=== PATIENT | female | born 1970 | race African-American/Black ===

== ENCOUNTER → 2020-03-23 | Outpatient (CLI) | payer OTHER ==
--- NOTE | 2020-03-23 17:14 | RAD ---
MRI ABDOMEN W/O CONTRAST: MRCP Clinical Indication: Reason: RUQ PAIN X2 MONTHS / Spl. Instructions: / History: Comparison: None. Technique: Multiplanar multiple pulse sequence imaging of the abdomen was performed, including T2 thin slab images through the biliary tree, without contrast. 3-D volume rendering images constructed to better evaluate the biliary tree anatomy. Findings: There is no intrahepatic or extrahepatic duct dilation. The common bile duct measures up to 5 mm. No filling defect is identified. The pancreatic duct is normal caliber. There are numerous tiny gallstones, on the order of 1 mm in size. Gallstones are layering dependently in the gallbladder. There is no gallbladder wall thickening or pericholecystic fluid. There are a couple of small or tiny renal cortical cysts. No follow-up is recommended. There is no hydronephrosis. The spleen, adrenal glands, and pancreas are normal. There is no dilated bowel. No abdominal ascites. There is a tiny T2 hyperintensity in segment 6 of the liver, probably a cyst or hemangioma. There is no fatty infiltration of the liver. No diffusion-weighted signal abnormality is identified. IMPRESSION: 1. Biliary tree and pancreatic duct are normal caliber. No evidence of choledocholithiasis. 2. Cholelithiasis. Electronically signed by: Lawrence Childers MD (03/23/2020 5:10 PM) [id number]
== END | disposition home or self-care (01) ==
LOC: MRI 10:05
PROVIDERS: ATTEND Internal Medicine Gastroenterology
DX: K80.20 Calculus of gallbladder without cholecystitis without obstruction (principal)
CPT/HCPCS: 74181

== ENCOUNTER → 2020-04-13 | Outpatient (CLI) | payer OTHER ==
[~2020-04-13] MED LIST: OXYC1TAB15 PO
== END | disposition home or self-care (01) ==
LOC: LAB 14:10
PROVIDERS: ATTEND Surgery
DX: Z11.59 Encounter for screening for other viral diseases (principal)
CPT/HCPCS: U0003-CS

== ENCOUNTER 2020-04-18 08:01 | Observation (INO) | payer OTHER ==
[~2020-04-18] VITALS: Ht 160 cm; Wt 93.5 kg
[2020-04-18] VITALS (8 sets, daily range): BP systolic 119–159; BP diastolic 64–82
[~2020-04-18 08:01] MED LIST changes: +HYDROmorphone 2 MG/ML VIAL IV PRN; +IV RINGERS,LACTATED 1000ML 1,000 ML IV SCH; +LIDOCAINE 1% PF 2 ML VIAL. ID PRN; +MORPHINE SULFATE 2 MG/ML VIAL. IV PRN; +ONDANSETRON PF 4 MG/2 ML VIAL. IV PRN; -OXYC1TAB15 PO; +PROCHLORPERAZINE 10 MG/2 ML VIAL. IV PRN; +fentaNYL PF VIAL 100 MCG/2 ML VIAL IV PRN
[2020-04-18] MEDS ORDERED: fentaNYL PF VIAL 250 MCG/5 ML VIAL ONE (08:46)
[2020-04-18] MEDS ORDERED: ROCURONIUM 50 MG/5 ML VIAL. ONE (08:46)
[2020-04-18] MEDS ORDERED: SURGICEL HEMOSTAT 4X8 EACH. ONE (09:24)
[2020-04-18] MEDS ORDERED: IOHEXOL 300 MG/ML 50 ML VIAL. ONE (09:24)
[2020-04-18] MEDS ORDERED: BUPIVACAINE MPF 0.5% 30 ML VIAL. ONE (09:25)
[2020-04-18] MEDS ORDERED: BUPIVACAINE MPF 0.5% 30 ML VIAL. IJ ONE (10:05)
[2020-04-18] MEDS ORDERED: IOHEXOL 300 MG/ML 50 ML VIAL. IV ONE (10:05)
[2020-04-18] MEDS ORDERED: ONDANSETRON PF 4 MG/2 ML VIAL. ONE (10:13)
[2020-04-18] MEDS ORDERED: DEXAMETHASONE SOD PHOS 4 MG/ML VIAL ONE (10:13)
[2020-04-18] MEDS ORDERED: LIDOCAINE 2% PF 5 ML VIAL. ONE (10:13)
[2020-04-18] MEDS ORDERED: PROPOFOL 10 MG/ML (20ML) VIAL. IV ONE (10:13)
[2020-04-18] MEDS ORDERED: SEVOFLURANE 61 TO 120 MINUTES. IH ONE (10:14)
[2020-04-18] MEDS ORDERED: NEOSTIGMINE METHYLSULFATE 5 MG/5 ML SYRINGE. ONE (10:49)
[2020-04-18] MEDS ORDERED: GLYCOPYRROLATE 1 MG/5 ML VIAL. ONE (10:49)
[2020-04-18] MEDS: IV NORMAL SALINE 1000ML BAG 1,000 ML IV SCH ×2 (11:11→12:55)
--- NOTE | 2020-04-18 11:11 | PDOC4 ---
Operative Note Operative Note Operative Note: Preoperative Diagnosis: Symptomatic cholelithiasis Postoperative Diagnosis: Symptomatic cholelithiasis, choledocholithiasis Procedure: Laparoscopic cholecystectomy with intraoperative cholangiogram Surgeons: aSgar Telephoner: Jessica HENRY Anesthesia: Gen. Estimated Blood Loss: 10 mL Specimen: Gallbladder to pathology Drains: 19 Fr DUSTIN Findings: Common duct stones Complications: None Indications: The patient is a 49 year old female who is been experiencing recurrent upper abdominal pain consistent with biliary colic. Her evaluation showed gallstones. Surgical treatment was offered by means of a laparoscopic cholecystectomy. The risks of surgery were discussed which include bleeding, infection, bile duct injury, bile leak, pain, the potential for additional surgeries or procedures. The patient understands and would like to proceed. Description: The patient was taken to the operating room and laid supine on the operating table. General anesthesia was performed. The abdomen was prepped with ChloraPrep and draped in a standard surgical fashion. A small infraumbilical incision was made with a scalpel. The Veress needle was then inserted and a pneumoperitoneum was then created. A 5 mm trocar was then inserted and the laparoscope was introduced. In the upper midabdomen a 5 mm trocar was inserted and in the right upper quadrant one 2.3 mm mini lap grasper and on 5 mm trocar were inserted. The gallbladder was retracted cephalad. The cystic duct was dissected free from surrounding tissues. One clip was placed on the duct near the gallbladder junction. An opening was made in the duct and a cholangiocatheter placed within and secured with a clip. Using contrast dye and fluoroscopy an intraoperative cholangiogram was performed. This showed filling defects in the common duct consistent with choledocholithiasis. The clip and catheter were then withdrawn. Three clips were placed on the cystic duct and it was divided. The cystic artery was then identified, dissected free, doubly clipped and divided as well. The gallbladder was then mobilized away from the liver with cautery. The umbilical 5 millimeter trocar was exchanged for an 11 millimeter trocar. A 19 Fr DUSTIN drain was left in the RUQ with the exit site in the right lateral port incision. This was secured to the skin with 2-0 silk. The gallbladder was then placed in an endoscopic bag and extracted at the umbilical trocar site. The fascia there was closed with an 0 Vicryl suture. All blood and irrigation fluid was suctioned and hemostasis was good. The remaining ports were removed and the pneumoperitoneum was relieved. The skin incisions were injected with half percent Marcaine with epinephrine, and all were closed using 4-0 Monocryl suture. Steri-Strips and dressings were then applied. The patient tolerated the procedure well and was sent to the recovery room in stable condition. At the end of the case all counts were correct. JAVIER ELIZONDO MD Apr 18, 2020 11:11
[2020-04-18] MEDS ORDERED: HYDROmorphone 2 MG/ML VIAL IV PRN (11:15)
[2020-04-18] MEDS ORDERED: NALOXONE 0.4 MG/ML VIAL. IV PRN (11:15)
[2020-04-18] MEDS ORDERED: 0.9 % SODIUM CHLORIDE 10 ML DISP.SYRIN. IV PRN (11:15)
[2020-04-18] MEDS ORDERED: oxyCODONE/APAP 5/325 1 TAB TABLET PO PRN ×2 (11:15)
[2020-04-18] MEDS ORDERED: ONDANSETRON PF 4 MG/2 ML VIAL. IVP PRN (11:15)
--- NOTE | 2020-04-18 11:16 | RAD ---
CHOLANGIOGRAM INTRAOPERATIVE History: Cholangiogram Comparison: None. Findings: Single low resolution intraprocedural view from a cholangiogram is submitted. Interpretation is made of submitted image only, exam performed by different physician. There has been introduction of contrast into the cystic duct. There is more defined filling defect of the distal common bile duct. There could be another more faint filling defect of the mid common bile duct although overlying apparatus limits accurate characterization. There is some incomplete filling of the more central biliary ducts on the right. There is contrast in the duodenum. Fluoroscopy time: 0.18 minutes. Impression: 1. There is a round filling defect in the distal common bile duct which may be gas bubble or stone. There is another questionable filling defect in the mid common bile duct otherwise difficult to characterize due to overlying apparatus. Electronically signed by: Benjamin Bella MD (04/18/2020 11:13 AM) [id number]
[2020-04-18] MEDS ORDERED: fentaNYL PF VIAL 100 MCG/2 ML VIAL ONE (12:07)
--- NOTE | 2020-04-18 12:30 | PDOC2 ---
GI CONSULT Reason For Consult: CBD stones, needs ERCP HPI: HPI: 49 y/o female admitted after cholecystectomy for symptomatic cholelithiasis w/ Dr. Keith. Noted w/ abnormal IOC. Seen today w/ supportive son Odin. She reports RUQ/epigastric discomfort w/ intermittent bloating ("hard") since 01/2020. Mostly occurs after eating. Has been keeping to a bland diet and eating less than usual. No h/o heartburn until pain started - tried Nexium but stopped. No longer has GERD symptoms. No dysphagia, n/v, diarrhea, constipation, hematochezia, or melena. Might have lost some weight. No previous EGD. Reportedly had normal colonoscopy in 08/2019 at [facility]. No liver, pancreas, or PUD history. Has Rx for diclofenac for knee pain but doesn't use it. MRCP last month w/ cholelithiasis and normal CBD (5mm). IOC today w/ round filling defect in distal CBD ("gas bubble vs stone") and another questionable filling defect in mid CBD - d/w Dr. Keith. Sore after surgery "where the holes are." PMH: PMH: left knee arthroscopy, tubal ligation FH: Family History: No pertinent hx (denies GI cancers) Social History: Smoke: No ALCOHOL: none Drugs: None ROS: GEN: Denies fevers, chills, sweats HEENT: Denies blurred vision, sore throat CV: Denies chest pain RESP: Denies shortness of air, cough GI: Per HPI : Denies hematuria, dysuria ENDO: Denies weight changes NEURO: Denies confusion, dizziness MSK: Denies weakness, joint pain/swelling SKIN: Denies jaundice, pruritus Vitals: Vitals: Vital Signs Date Time Temp Pulse Resp B/P (MAP) Pulse Ox O2 Delivery O2 Flow Rate FiO2 04/18/20 12:11 17 99 Room Air 04/18/20 12:00 97.9 48 146/48 97.9 04/18/20 11:30 8 Labs: Labs: Laboratory Tests Test 04/18/20 08:28 04/18/20 12:20 Bedside Urine HCG, Qualitative Hcg negative Total Bilirubin 0.4 mg/dL Direct Bilirubin 0.2 mg/dL Aspartate Amino Transf (AST/SGOT) 31 U/L Alanine Aminotransferase (ALT/SGPT) 20 U/L Alkaline Phosphatase 82 U/L Total Protein 6.2 g/dL Albumin 2.8 g/dL Laboratory Tests Test 04/18/20 08:28 Bedside Urine HCG, Qualitative Hcg negative (Negative) Allergies: Coded Allergies: Iodine and Iodide Containing Produc (Verified Allergy, Intermediate, Rash, 04/18/20) Medications: Current Medications Medications (Trade) Dose Ordered Sig/Jai Route PRN Reason Start Time Stop Time Status Last Admin Dose Admin Fentanyl Citrate (Fentanyl 2ml Vial) 50 mcg PRN Q5MIN PRN IV MODERATE TO SEVERE PAIN 04/18/20 07:00 04/19/20 06:59 04/18/20 12:11 Ringer's Solution 1,000 ml @ 30 mls/hr Q24H IV 04/18/20 07:00 04/18/20 18:59 04/18/20 08:45 Bupivacaine HCl (Sensorcaine Mpf 0.5%) 30 ml STK-MED ONCE IJ 04/18/20 10:05 04/18/20 10:16 DC 04/18/20 10:05 Iohexol (Omnipaque 300 Mg/ml) 50 ml STK-MED ONCE IV 04/18/20 10:05 04/18/20 10:16 DC 04/18/20 10:05 Imaging: Imaging: IOC 04/18/20 Impression: 1. There is a round filling defect in the distal common bile duct which may be gas bubble or stone. There is another questionable filling defect in the mid common bile duct otherwise difficult to characterize due to overlying apparatus. MRCP 03/23/20 IMPRESSION: 1. Biliary tree and pancreatic duct are normal caliber (CBD 5mm). No evidence of choledocholithiasis. 2. Cholelithiasis. PE: GEN: NAD HEENT: Atraumatic, PERRL LUNGS: CTAB HEART: RRR ABD: quiet, soft, non-distended, uncomfortable - has ice pack EXTREMITY: No edema SKIN: No rashes, no jaundice NEURO/PSYCH: A & O 3 A/P: A/P: Cholelithiasis s/p cholecystectomy w/ abnormal IOC COVID-19 negative 04/13/20 H/o heartburn - earlier this year and treated w/ PPI, no longer bothersome CRC screen - UTD -- Concern for choledocholithiasis. LFTs normal. Will recheck in a.m. Discussed possibility of ERCP - procedure/possible risks explained to pt and son. All questions answered to their satisfaction. Clears okay for today. Dr. Meyer will follow-up. EMETERIO BOSE Apr 18, 2020 12:30
--- NOTE | 2020-04-18 13:00 | NUR ---
received from recovery. she is post lap elsy with poss stone in bile duct. she has 2 lap sites-umbilicus and epigastric and 2 steri strips in the ruq and rmq along with giana drain to suction. she is rating her pain an "8" . medicated with Dilaudid. son at bedside. she is given clear liquids. admission history completed
[2020-04-18 13:05] LABS: ALBUMIN 2.8 g/dL (3.4-5.0); DIRECT BILIRUBIN 0.2 mg/dL (0.0-0.2); TOTAL BILIRUBIN 0.4 mg/dL (0.2-1.0); TOTAL PROTEIN 6.2 g/dL (6.4-8.2)
[2020-04-18] MEDS: IV 1/2 NORMAL SALINE 1,000 ML IV SCH (13:15)
[2020-04-18] MEDS ORDERED: CALCIUM CARBONATE 500 MG TAB.CHEW PO PRN (13:30)
--- NOTE | 2020-04-18 15:58 | NUR ---
Chart reviewed. Patient with recent lap elsy. Patient would benefit from further PT/OT evaluation to ensure safety with mobility and performing self cares. Please order when medically appropriate for skilled therapy services. Thank you. Addendum: 04/18/20 at 1559 by POLO REHMAN, PT PT Amended: Links added.
--- NOTE | 2020-04-19 | NUR ---
Patient NPO for possible surgery in am.
[2020-04-19 03:00] VITALS: BP 95/68
[2020-04-19] MEDS: IV 1/2 NORMAL SALINE 1,000 ML IV SCH (03:00)
[2020-04-19 06:38] VITALS: BP 159/82
--- NOTE | 2020-04-19 08:35 | PDOC ---
Subjective: Subjective: Incisional soreness, bloating, belching. Rumbling but no flatus. Jello caused nausea but tolerating water and other liquids. Objective: Vital Signs: Vital Signs Date Time Temp Pulse Resp B/P (MAP) Pulse Ox O2 Delivery O2 Flow Rate FiO2 04/19/20 06:38 98.6 58 20 159/82 (107) 96 Room Air 98.6 04/18/20 11:30 8 PE: GEN: NAD, up to chair talking on phone LUNGS: CTAB HEART: RRR ABD: BS+, mildly sore at lap site, drain serosang NEURO/PSYCH: A & O 3 A/P: Cholelithiasis s/p cholecystectomy w/ abnormal IOC -- Labs ordered for this morning - apparently uncollected - await these and consider DC if normal. Justicifation of Admission Dx: Justifications for Admission: Justification of Admission Dx: Yes EMETERIO BOSE Apr 19, 2020 08:35
[2020-04-19 09:34] LABS: HEMATOCRIT 37.9 % (36.0-47.0); HEMOGLOBIN 12.7 g/dL (12.0-15.5); RED BLOOD COUNT 4.31 x10^6/uL (3.50-5.40); RED CELL DISTRIBUTION WIDTH 15.7 % (11.5-14.5); WHITE BLOOD COUNT 8.8 x10^3/uL (4.0-11.0)
--- NOTE | 2020-04-19 10:08 | PDOC ---
SURGICAL PROGRESS NOTE Subjective up to chair + gas pains no emesis Vital Signs Vital Signs Date Time Temp Pulse Resp B/P (MAP) Pulse Ox O2 Delivery O2 Flow Rate FiO2 04/19/20 06:38 98.6 58 20 159/82 (107) 96 Room Air 98.6 04/18/20 11:30 8 I&O Intake and Output 04/19/20 07:00 Intake Total 3153 ml Output Total 1550 ml Balance 1603 ml Intake Oral 560 ml IV Total 2593 ml Output Urine Total 1450 ml Drainage Total 80 ml Estimated Blood Loss 20 ml General: Alert, Oriented X3, Cooperative Abdomen: Soft, Other (lap dressings dry, giana serosang) Labs Laboratory Tests Test 04/18/20 08:28 04/18/20 12:20 04/19/20 08:45 Bedside Urine HCG, Qualitative Hcg negative (Negative) Total Bilirubin 0.4 mg/dL (0.2-1.0) Direct Bilirubin 0.2 mg/dL (0.0-0.2) Aspartate Amino Transf (AST/SGOT) 31 U/L (15-37) Alanine Aminotransferase (ALT/SGPT) 20 U/L (14-59) Alkaline Phosphatase 82 U/L (46-116) Total Protein 6.2 g/dL (6.4-8.2) Albumin 2.8 g/dL (3.4-5.0) White Blood Count 8.8 x10^3/uL (4.0-11.0) Red Blood Count 4.31 x10^6/uL (3.50-5.40) Hemoglobin 12.7 g/dL (12.0-15.5) Hematocrit 37.9 % (36.0-47.0) Mean Corpuscular Volume 88 fL (79-100) Mean Corpuscular Hemoglobin 29 pg (25-35) Mean Corpuscular Hemoglobin Concent 34 g/dL (31-37) Red Cell Distribution Width 15.7 % (11.5-14.5) Platelet Count 358 x10^3/uL (140-400) Laboratory Tests Test 04/18/20 12:20 04/19/20 08:45 Total Bilirubin 0.4 mg/dL (0.2-1.0) Direct Bilirubin 0.2 mg/dL (0.0-0.2) Aspartate Amino Transf (AST/SGOT) 31 U/L (15-37) Alanine Aminotransferase (ALT/SGPT) 20 U/L (14-59) Alkaline Phosphatase 82 U/L (46-116) Total Protein 6.2 g/dL (6.4-8.2) Albumin 2.8 g/dL (3.4-5.0) White Blood Count 8.8 x10^3/uL (4.0-11.0) Red Blood Count 4.31 x10^6/uL (3.50-5.40) Hemoglobin 12.7 g/dL (12.0-15.5) Hematocrit 37.9 % (36.0-47.0) Mean Corpuscular Volume 88 fL (79-100) Mean Corpuscular Hemoglobin 29 pg (25-35) Mean Corpuscular Hemoglobin Concent 34 g/dL (31-37) Red Cell Distribution Width 15.7 % (11.5-14.5) Platelet Count 358 x10^3/uL (140-400) Assessment/Plan s/p elsy awaiting labs and GI recs Justicifation of Admission Dx: Justifications for Admission: Justification of Admission Dx: Yes OLAMIDE BROWN BUSINESS TEAM LEADER Apr 19, 2020 10:08
[2020-04-19 10:10] LABS: ALBUMIN 2.7 g/dL (3.4-5.0); DIRECT BILIRUBIN 0.2 mg/dL (0.0-0.2); TOTAL BILIRUBIN 0.7 mg/dL (0.2-1.0); TOTAL PROTEIN 6.2 g/dL (6.4-8.2)
[2020-04-19 10:57] VITALS: BP 139/79
[2020-04-19] MEDS ORDERED: OXYC1TAB15 PO (14:13)
--- NOTE | 2020-04-19 14:16 | DISCH ---
DISCHARGE INSTRUCTIONS Condition on Discharge Condition on Discharge: Stable Activity After Discharge Activity Instructions for Disc: Progressive ambulation Other activity instructions: No lifting > 20 lbs x 2 weeks Bathing Instructions: Shower-keep dressing dry Lifting Instructions after Dis: No heavy lifting, No pulling or pushing Driving Instructions after Dis: Do not drive Diet after Discharge Diet after Discharge: Low Fat Wound Incision Care Wound/Incision Care: Change dressing, May get incision wet Other wound/incision instructi: drain care as instructed Contacting the DRThom after DC Call your doctor for: Concerns you may have Follow-Up Follow up with: Dr Keith 04/25, call to schedule [phone] OLAMIDE BROWN APRN Apr 19, 2020 14:16
[2020-04-19 15:18] VITALS: BP 138/63
[2020-04-19 18:00] VITALS: BP 128/75
--- NOTE | 2020-04-19 18:06 | PATHOLOGY ---
[facility] Accession Number: [id number] . 01 Material submitted: . gallbladder - GALLBLADDER AND CONTENTS . 01 Clinical history: . Choledocholithiasis, symptomatic cholelithiasis . 02 Diagnosis: Gallbladder (gallbladder), cholecystectomy: - Moderate chronic cholecystitis with cholelithiasis. - The attached lymph node reveals reactive changes. (SHA/db; 04/19/2020) LBQ 04/19/2020 1543 Local . 02 Electronically signed: . Del Jones MD, Pathologist NPI- [id number] . 01 Gross description: . The specimen is received in formalin labeled "Case, Cesilia, gallbladder and contents" and consists of an intact green avendaño to green smooth gallbladder measuring 8.8 x 3.4 x 3.0 cm. The margin is inked black. Opening reveals a lumen filled with green bile and multiple smooth calculi measuring up to 1.2 cm. The mucosa is green brown and granular with an average wall thickness of 0.1 cm. No masses are identified. Adjacent the gallbladder neck is a lymph node measuring 0.9 cm. Rate Reviewer sections are submitted in A1. (SDY; 04/18/2020) SYU/SYU 04/18/2020 1741 Local . 02 Pathologist provided ICD-10: K80.10 . 02 CPT . 804382 Specimen Comment: A courtesy copy of this report has been sent to [phone], [phone] Specimen Comment: [id number] Specimen Comment: Report sent to / DR CHRISTIE Performed at: [address], [place], [place] [id number] MD Chava Almaguer MD Phone: [phone] Performed at: 02 [facility] [address] [place], [place] [id number] MD Coy Gandhi MD Phone: [phone]
--- NOTE | 2020-04-19 18:15 | NUR ---
Discharge instructions given. Answered questions and concerns. Also did home with DUSTIN salcedo teaching. Verbalized understanding. Prescription via electronic to pharmacy. Discharged home accompanied by son. Escorted by w/c.
--- NOTE | 2020-04-24 12:52 | PDOC3 ---
Discharge Summary Visit Information Date of Admission: Apr 18, 2020 Date of Discharge: Apr 19, 2020 Admitting Diagnosis: Symptomatic cholelithiasis Final Diagnosis Symptomatic cholelithiasis, choledocholithiasis Brief Hospital Course Allergies Allergies Coded Allergies Type Severity Reaction Last Updated Verified Iodine and Iodide Containing Produc Allergy Intermediate Rash 04/18/20 Yes Brief Hospital Course Ms. Case is a 49 old [sex] who underwent Laparoscopic cholecystectomy with intraoperative cholangiogram. Cholangiogram concerning for choledocholithiasis. Gi was consulted and evaluated patient, liver enzymes remained normal and did not require any additional intervention. She was tolerating her diet, pain was controlled, and ready for discharge home. Will discharge home with drain in place and follow up in office next week Discharge Information Condition at Discharge: Stable Follow Up: Weeks (1) Disposition/Orders: D/C to Home Scheduled Info (No Known Medications Prior To Admisstion) Each, 1 EACH MC DAILY for N/A, (Reported) Entered as Reported by: BRYON WINTER on 04/18/20831 Last Action: New Order on 04/18/20831 by BRYON WINTER Scheduled PRN Oxycodone/Apap 5-325 (Percocet 5-325 Mg Tablet ) 1 Each Tablet, 1 TAB PO PRN Q4HRS PRN for MILD PAIN, 1ST CHOICE, #30 Ref 0 Prescribed by: Olamide Brown on 04/19/20 1413 Justicifation of Admission Dx: Justifications for Admission: Justification of Admission Dx: Yes OLAMIDE BROWN SCREEN MAKING SUPERVISOR Apr 24, 2020 12:52
== END 2020-04-19 18:15 | disposition home or self-care (01) ==
LOC: SURG 08:01 → 4 SOUTHEST 11:20 → INTOOBSV 11:20
PROVIDERS: ADMIT Surgery; ATTEND Surgery
DX: K80.70 Calculus of gallbladder and bile duct without cholecystitis without obstruction (principal)
CPT/HCPCS: 36415; 47563; 74300; 80076; 81025; 85027; 88304; 96374; 96375; A7015; G0378; G0379; J0690; J1100; J1170; J2405; J2704; J2710; J3010; J3490; J7030; J7120; Q9967